=== PATIENT | female | born 1955 | race Caucasian/White ===

== ENCOUNTER 2023-02-16 20:59 | Emergency (ER) | payer MEDICARE, SELFPAY ==
--- NOTE | ~2023-02-16 | XR_ITS ---
EXAMINATION: XR chest 1V portable Exam Date/Time: 02/16/2023 21:35 CDT HISTORY: BILAT LEG SWELLING Comparison: None. RESULT: Lines, tubes, and devices: None. Lungs and pleura: Low lung volumes with crowding. Mild senescent change. Streaky bibasilar scar/atel ectasis. Cardiomediastinal silhouette: Stable. Other: No acute osseous or upper abdominal finding. Serpiginous hyperdensity projects over the right upper quadrant, may represent vascular calcification or artifact. IMPRESSION: No acute cardiopulmonary process. Reviewed, dictated and finalized at location K.
--- NOTE | ~2023-02-16 | CT_ITS ---
EXAMINATION: CT abdomen pelvis wo con DATE: 02/16/2023 22:53 INDICATION: LEG SWELLING/PATIENT STATES NO ABDOMINAL COMPLAINTS TECHNIQUE: Computed tomography (CT) of the abdomen and pelvis was performed without intravenous contr ast. Automated exposure control and iterative reconstruction technique were employed. The dose-length product was 1202.63 mGy-cm. COMPARISON: None. FINDINGS: Lower thorax: Mild aortic valve, mitral, and coronary artery calcifications. Clear lung bases. Liver: Innumerable large liver cysts. Perihepatic fluid. Scattered areas hyperdensity throughout the liver may represent calcification or other post therapeutic change. The liver is enlarged. Biliary/Gallbladder: Gallbladder is not confidently visualized, but could easily be confused with a h epatic cyst. No definite bile duct dilation, although determination is limited by significant distort ion of the normal anatomy. Pancreas: Displaced, poorly visualized due to distortion of normal anatomy and lack of contrast. Spleen: Mildly enlarged. Adrenals: Poorly visualized due to lack of contrast and distorted anatomy. Kidneys: Bilateral renal enlargement by innumerable cysts. Several hyperdense rounded right renal les ions may represent proteinaceous or hemorrhagic cysts. Complete assessment for atypical features is n ot possible in this noncontrast examination. GI tract: No small or large bowel dilation. Normal appendix. Diverticulosis without diverticulitis. Mesentery/Peritoneum: No ascites, mass, or free air. Retroperitoneum: No mass. Pelvis: The bladder is decompressed by a Mooney catheter. Multiple calcified uterine fibroids. Soft Tissues: Diffuse body wall edema. Bones: No acute osseous finding. IMPRESSION: CT findings consistent with autosomal dominant polycystic kidney disease exhibited by considerable he patomegaly, bilateral renal megaly, and innumerable hepatic and bilateral renal cysts. Examination is limited due to anatomic distortion from the organomegaly and innumerable cysts, lack o f the comparison examination, and noncontrast technique. Atypical cystic features cannot be assessed. Several renal cysts on the right are hyperdense which may be secondary to proteinaceous or hemorrhagi c content. Small volume perihepatic fluid may represent recent hepatic cyst rupture. Diffuse body wall edema. Reviewed, dictated and finalized at location K. IMPRESSION: CT findings consistent with autosomal dominant polycystic kidney disease exhibi jenniffer by considerable hepatomegaly, bilateral renal megaly, and innumerable hepat ic and bilateral renal cysts. Examination is limited due to anatomic distortion from the organomegaly and inn umerable cysts, lack of the comparison examination, and noncontrast technique. Atypical cystic features cannot be assessed. Several renal cysts on the right are hyperdense which may be secondary to prote inaceous or hemorrhagic content. Small volume perihepatic fluid may represent recent hepatic cyst rupture. Diffuse body wall edema.
[2023-02-16 21:06] VITALS: BP 171/88; PULSE 98; RESP 18; O2SAT 98
--- NOTE | 2023-02-16 21:18 | ED.FALL ---
HPI - Fall General Chief Complaint: Weakness Stated Complaint: Fall Source: patient Mode of arrival: ambulatory History of Present Illness HPI Narrative: 68-year-old female without any known medical issues and without any prescription medications presents to the ER with -- bilateral leg swelling which is chronic -- bilateral leg weakness and she was unable to stand. she lowered herself to the ground without any direct trauma. No bruising or laceration of lower extremities. No fever or chills no nausea/vomiting /diarrhea. no abdominal distension no chest pain or shortness of breath Onset (ago): hour(s) ( She lowered herself to the ground 1 hour ago.) Fall from: standing Place fall occurred: home Loss of consciousness: none Prolonged down time: no Symptoms prior to fall: none Related Data Home Medications Medication Instructions Recorded Confirmed No Home Medications 02/16/23 02/16/23 Allergies Allergy/AdvReac Type Severity Reaction Status Date / Time No Known Allergies Allergy Verified 02/16/23 21:11 Review of Systems Review of Systems: All systems reviewed & are unremarkable except as noted in HPI and below Constitutional: Constitutional: Reports as per HPI and Reports no additional constitutional complaints Eyes: Eyes: Reports as per HPI and Reports no additional eye complaints ENT: Reports system reviewed and no additional complaints, except as documented and Reports as per HPI Cardiovascular: Cardiovascular: Reports as per HPI and Reports no additional cardiovascular complaints Respiratory: Respiratory: Reports as per HPI and Reports no additional respiratory complaints Gastrointestinal: Gastrointestinal: Reports as per HPI and Reports no additional gastrointestinal complaints Comments: Denied any nausea/vomiting /abdominal pain or diarrhea. Genitourinary: Genitourinary: Reports no additional female genitourinary complaints Musculoskeletal: Comments: Bilateral leg swelling and bilateral leg weakness Integumentary/Breasts: Skin/Breast: Reports system reviewed and no additional complaints, except as docu Comments: bilateral lower extremity lymphedema with erythema on the left lateral leg. Neurologic: Reports system reviewed and no additional complaints, except as documented Psychiatric: Psychiatric: Reports no additional psychiatric complaints and Reports as per HPI Endocrine: Endocrine: Reports no additional endocrine complaints and Reports as per HPI Hematologic/Lymphatic: Hematologic/Lymphatic: Reports no additional hematologic/lymphatic complaints and Reports as per HPI Allergic/Immunologic: Allergic/Immunologic: Reports no additional allergic/immunologic complaints and Reports as per HPI Exam Const: General: no acute distress Nutritional Appearance: obese Orientation/consciousness: patient oriented x3 Limitations: no limitations HENMT: Head: normal to inspection Ears: external ears normal Face/Nose/Sinus: Normal external nose present Face and sinus: normal facial exam Mouth: Yes Normal oral and palatal mucosa present Throat: posterior oropharynx normal Eyes: Conjunctivae: conjunctivae normal Pupils: Equal, round and reactive pupils present EOM: EOMs intact bilaterally Direct Ophthalmoscopy: no photophobia Neck: Neck: normal visual inspection, no lymphadenopathy and no meningeal signs Chest: Chest palpation & inspection: normal inspection of the chest Resp: Effort & Inspection: normal respiratory effort Auscultation: clear to auscultation bilaterally Cardio: Rate: regular rate Rhythm: regular rhythm GI: GI Palp: Yes Soft to palpation Auscultation: normal bowel sounds : General: Yes no CVA tenderness Back/Spine/Pelvis: Back: no CVA tenderness Skin: Other: Bilateral lower extremity lymphedema with erythema over the left lateral leg. No bruising or laceration. Increased swelling over the right knee with a normal range of motion.
--- NOTE | 2023-02-16 21:28 | ECG_ITS ---
Measurements Intervals [place] Rate: 92 P: 78 DC: 114 QRS: 66 QRSD: 71 T: 64 QT: 354 QTc: 438 Interpretive Statements SINUS RHYTHM WITH SHORT DC INTERVAL BASELINE ARTIFACT- I, III, AVL, V1-V2, V4 BORDERLINE ECG NO PREVIOUS ECG AVAILABLE FOR COMPARISON Electronically Signed On 02-17-2023 8:35:03 CDT by Hugo Morales D.O.
[2023-02-16 21:46] LABS: Basophils Absolute Auto 0.07 K/mm3 (0.00-0.10); Basophils Percent Auto 1.1 % (0.0-1.0); Eosinophils Percent Auto 6.5 % (1.0-6.0); Hematocrit 33.5 % (35.0-42.0); Hemoglobin 10.3 g/dL (11.7-13.8); Immature Granulocyte Absolute 0.03 K/mm3 (0.00-0.00); Immature Granulocyte Percent A 0.5 % (0.0-0.0); Lymphocytes Absolute Auto 0.26 K/mm3 (1.10-4.50); Lymphocytes Percent Auto 4.2 % (18.0-42.0); Mean Corpuscular HGB Conc 30.7 g/dL (32.0-36.0); Mean Corpuscular Hemoglobin 28.8 pg (27.0-31.0); Mean Corpuscular Volume 93.6 fL (78.0-102.0); Mean Platelet Volume 10.8 fl (9.2-11.8); Monocytes Absolute Auto 0.51 K/mm3 (0.10-0.90); Monocytes Percent Auto 8.2 % (2.0-11.0); Neutrophils Absolute Auto 4.9 K/mm3 (1.7-7.2); Neutrophils Percent Auto 79.5 % (50.0-70.0); Platelet Count Result 247 K/mm3 (150-420); Red Blood Count 3.58 M/mm3 (4.20-5.40); Red Cell Distribution Width 15.5 % (11.6-14.4); White Blood Count 6.2 K/mm3 (4.8-10.8)
[2023-02-16 21:58] VITALS: PULSE 90; TEMP 36.7
[2023-02-16 22:00] LABS: INR 1.1; Prothrombin Time 12.4 Seconds (9.50-12.10)
[2023-02-16 22:04] LABS: Lactic Acid Reflex 0.7 mmol/L (0.4-2.0)
[2023-02-16 22:12] VITALS: BP 155/93
[2023-02-16 22:12] LABS: Alanine Aminotransferase 19 U/L (14-59); Albumin Level 3.1 g/dL (3.4-5.0); Alkaline Phosphatase 292 U/L (46-116); Anion Gap 14 mmol/L (8-16); Aspartate Amino Transferase 22 U/L (15-37); Bilirubin Direct 0.2 mg/dL (0-0.2); Bilirubin,Total 0.5 mg/dL (0.00-1.00); Blood Urea Nitrogen 81 mg/dL (7-18); Calcium 6.3 mg/dL (8.5-10.1); Carbon Dioxide 19 mmol/L (21-32); Chloride 112 mmol/L (98-108); Estimated CRCL calculation 14 ml/min; Estimated Glomerular Filt Rate 11; Glucose 104 mg/dL (70-99); Lipase 98 U/L (16-77); NT Pro B Type Natriuretic Pept 1226 pg/mL (0-125); Osmolality Calculated 324 mOsm/kg (285-295); Sodium 145 mmol/L (136-145); Total Protein 6.5 g/dL (6.4-8.2)
[2023-02-16 22:14] LABS: Ammonia < 10 umol/L (11-32); Thyroid Stimulating Hormone 4.12 uIU/mL (0.36-3.74)
[2023-02-16 22:40] LABS: Appearance Urine Clear (Clear); Bilirubin Urine Negative (Negative); Blood Urine 1+ (Negative); Color Urine Light Yellow (Yellow); Glucose Urine UA Negative (Negative); Ketones Urine Negative (Negative); Leukocyte Esterase Ur Trace LEU/UL (Negative); Nitrate Urine Negative (Negative); Protein Urine 1+ (Negative); Specific Grav Ur 1.015 (1.010-1.020); Urobilinogen Urine 0.2 mg/dL (0.2-1.0)
[2023-02-16] MEDS: SODIUM ZIRCONIUM CYCLOSILICATE 5 GM POWD.PACK PO (22:43)
[2023-02-16] MEDS: SODIUM BICARBONATE 8.4% 50 MEQ/50 ML SYRINGE IV PUSH (22:43)
[2023-02-16] MEDS: FUROSEMIDE INJ 20 MG/2 ML VIAL IV PUSH (22:43)
[2023-02-16] MEDS: CALCIUM GLUC 1,000 MG/NS 50 ML 1,000 MG/50 ML BAG 100 MG IVPB (22:43)
[2023-02-16 22:46] LABS: Add Urine Microscopic? YES; Bacteria Urine Trace /hpf; RBC Urine 0-2 /hpf (0-2); Squamous Epithelial Cell Urine Rare /hpf (Few); WBC Urine 0-3 /hpf (0-3)
--- NOTE | 2023-02-16 23:29 | PC.NURSE ---
Pt and pt's family requesting [facility] ambulance for transfer at this time.
[2023-02-17 01:43] VITALS: BP 139/78; PULSE 88; RESP 16; O2SAT 99
[2023-02-17 02:30] VITALS: BP 139/78; PULSE 96; RESP 16; TEMP 36.7; O2SAT 98
== END 2023-02-17 03:06 | disposition short-term general hospital (02) ==
PROVIDERS: Emergency Provider Internal Medicine Critical Care Medicine
DX: Q61.2 Polycystic kidney, adult type (principal); N17.9 Acute kidney failure, unspecified; N18.9 Chronic kidney disease, unspecified; I89.0 Lymphedema, not elsewhere classified; W18.30XA Fall on same level, unspecified, initial encounter
CPT/HCPCS: 36415; 71045; 74176; 80048; 80076; 81001; 82140; 83605; 83690; 83880; 84443; 84484; 85025; 85610; 85730; 93005; 96365; 96375; 99285; A9270; J0612; J1940